=== PATIENT | male | born 1965 | race African-American/Black ===

== ENCOUNTER 2017-01-22 08:00 | Emergency (ER) | payer MEDICAID ==
[~2017-01-22] VITALS: Ht 182.9 cm; Wt 65.0 kg
[~2017-01-22 08:00] MED LIST: ALBUAER3 INH; GABA400C5 PO; PERC10TA27 PO; PRED20 PO; TOBRO RIGHT EYE
[2017-01-22 08:01] VITALS: BP 143/98; PULSE 80; RESP 20; TEMP 97.7; O2SAT 99
[2017-01-22 08:25] VITALS: BP 138/95; PULSE 58; RESP 20; TEMP 98.7; O2SAT 100
[2017-01-22] MEDS ORDERED: HYDROmorphone HCL PF 1 MG/ML VIAL IV PUSH ONE (08:45)
[2017-01-22] MEDS ORDERED: ONDANSETRON HCL 4 MG/2 ML VIAL IV PUSH ONE (08:45)
[2017-01-22] MEDS ORDERED: SODIUM CHLORIDE 0.9% FLUSH 10 ML FLUSH IVF PRN (08:45)
[2017-01-22] MEDS ORDERED: SODIUM CHLORID 0.9% 500 ML INJ 500 ML IV ONE (08:45)
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
[2017-01-22 08:53] LABS: AUTOMATED NEUTROPHIL # 5.6 TH/MM3 (1.8-7.7); BASOPHIL % 0.4 % (0.0-2.0); EOSINOPHIL # 0.4 TH/MM3 (0-0.4); EOSINOPHIL % 4.2 % (0.0-4.0); HEMATOCRIT 37.4 % (39.0-51.0); HEMO FLAGS DIFF FINAL; LYMPH % 35.1 % (9.0-44.0); LYMPHOCYTE # 3.8 TH/MM3 (1.0-4.8); MEAN CELL VOLUME 82.6 FL (80.0-100.0); MEAN CORPUSCULAR HEMOGLOBIN 28.8 PG (27.0-34.0); MEAN CORPUSCULAR HGB CONC 34.9 % (32.0-36.0); MONO % 7.9 % (0.0-8.0); NEUT % 52.4 % (16.0-70.0); PLATELET COUNT 255 TH/MM3 (150-450); RED BLOOD COUNT 4.53 MIL/MM3 (4.50-5.90); RED CELL DISTRIBUTION WIDTH 15.1 % (11.6-17.2); WHITE BLOOD COUNT 10.7 TH/MM3 (4.0-11.0)
[2017-01-22 09:01] LABS: APTT (PATIENT) 29.9 SEC (24.3-30.1); PROTHROMBIN TIME - PATIENT 10.8 SEC (9.8-11.6)
[2017-01-22 09:06] LABS: ALT (GPT) 22 U/L (12-78); ANION GAP 7 MEQ/L (5-15); AST (GOT) 12 U/L (15-37); BICARBONATE 23.3 MEQ/L (21.0-32.0); BLOOD UREA NITROGEN 9 MG/DL (7-18); CHLORIDE 110 MEQ/L (98-107); GLOMERULAR FILTRATION RATE 90 ML/MIN (>89); POTASSIUM 3.9 MEQ/L (3.5-5.1); SODIUM (NA) 140 MEQ/L (136-145)
[2017-01-22 09:10] LABS: ALKALINE PHOSPHATASE 80 U/L (45-117); TOTAL BILIRUBIN ADULT 0.2 MG/DL (0.2-1.0)
[2017-01-22 09:14] LABS: CREATINE KINASE 63 U/L (39-308)
--- NOTE | 2017-01-22 09:35 | RADRPT ---
EXAM DATE/TIME: 01/22/2017 08:33 [facility] COMPARISON: No previous studies available for comparison. INDICATIONS : Chest and back pain, short of breath, has had pneumonia in the past MEDICAL HISTORY : pneumonia SURGICAL HISTORY : None. ENCOUNTER: Initial ACUITY: 1 day PAIN SCORE: 10/10 LOCATION: Bilateral chest FINDINGS: A single view of the chest demonstrates the lungs to be symmetrically aerated without evidence of mas s, infiltrate or effusion. The cardiomediastinal contours are unremarkable. Osseous structures demo nstrate degenerative changes in the a.c. joints bilaterally. CONCLUSION: 1. No acute cardiopulmonary findings. 2. There are mild degenerative changes in the a.c. joints bilaterally. Devon Alarcon MD on January 22, 2017 at 9:32 Board Certified Radiologist. This report was verified electronically.
[2017-01-22 09:41] VITALS: BP_SYST 139; BP_SYST 145; BP_DIAS 88; BP_DIAS 94; PULSE 57; O2SAT 100
[2017-01-22] MEDS ORDERED: IOHEXOL 350 MG/ML 10 ML VIAL (for RAD DIAG) IV ONE (11:09)
--- NOTE | 2017-01-22 11:21 | RADRPT ---
EXAM DATE/TIME: 01/22/2017 10:30 [facility] COMPARISON: No previous studies available for comparison. INDICATIONS : Mid sternal chest pain radiating to back. IV CONTRAST: 75 cc Omnipaque 350 (iohexol) IV RADIATION DOSE: 3.78 CTDIvol (mGy) MEDICAL HISTORY : None SURGICAL HISTORY : None. ENCOUNTER: Initial ACUITY: 1 day PAIN SCALE: 6/10 LOCATION: chest TECHNIQUE: Volumetric scanning was performed using a multi-row detector CT scanner. The data was post processed with a variety of visualization algorithms including full volume maximum intensity projection, multi -planar sliding thin slab reformation, curved planar reformation, and surface rendering techniques. Using automated exposure control and adjustment of the mA and/or kV according to patient size, radiat ion dose was kept as low as reasonably achievable to obtain optimal diagnostic quality images. FINDINGS: Thoracic/abdominal aorta: Aorta is normal in caliber and course. No dissection, aneurysm, or surrounding fluid. No wall thicken ing. The arch vessels, celiac, SMA, VICKI, and renal arteries are patent. Heart and mediastinum: The heart is normal in size. No pericardial effusion. Pulmonary arteries are normal in caliber. No ad enopathy. Lung parenchyma: 2 tiny nodular densities are seen. One is adjacent to the major fissure within the posterior segment of the right upper lobe and the second within the superior segment of the right lower lobe. Both trent ures 3 mm. The remaining lungs are clear. Other structures: Abdominal viscera is unremarkable for this arterial phase study. No hydronephrosis or renal calculi o bserved. CONCLUSION: 1. Normal aorta. 2. No acute abnormality to explain the patient's pain. 3. 2 tiny nodular densities involving the right lung as detailed above. These likely are postinflamma tory in nature. Current guidelines suggest a repeat CT of the thorax in 12 months. Hiro Rosa Jr., MD on January 22, 2017 at 11:12 Board Certified Radiologist. This report was verified electronically.
--- NOTE | 2017-01-22 21:17 | EKG ---
Date Performed: 01/22/2017 Time Performed: 08:10:57 PTAGE: 51 years EKG: Sinus rhythm NORMAL ECG NO PREVIOUS TRACING DOCTOR: Samuel Flaherty Interpretating Date/Time 01/22/2017 21:13:00
== END 2017-01-22 11:51 | disposition home or self-care (01) ==
LOC: NEPC 08:00
DX: R07.2 Precordial pain (principal); R06.02 Shortness of breath; J45.909 Unspecified asthma, uncomplicated; R05 Cough
CPT/HCPCS: 71010; 71275; 74174; 80053; 82550; 83690; 83735; 84484; 85025; 85379; 85610; 85730; 93005; 96361; 96374; 96375; 99285; J1170; J2405; J7040; Q9967

== ENCOUNTER 2017-07-11 16:36 | Emergency (ER) | payer MEDICARE, MEDICAID ==
[~2017-07-11] VITALS: Ht 182.9 cm; Wt 65.0 kg
[2017-07-11 16:38] VITALS: BP 144/86; PULSE 59; RESP 18; TEMP 98.7; O2SAT 98
[2017-07-11] MEDS ORDERED: PERC10TA27 PO (16:54)
[2017-07-11] MEDS ORDERED: PENI500T PO (16:54)
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
[2017-07-11] MEDS ORDERED: BUPIVACAINE/EPINEPHRINE 0.5% PF 10 ML VIAL EPIDURAL ONE (17:00)
[2017-07-13] MEDS ORDERED: PERC10TA27 PO (10:50)
== END 2017-07-11 17:34 | disposition home or self-care (01) ==
LOC: NEPK 16:36
DX: S02.5XXG Fracture of tooth (traumatic), subsequent encounter for fracture with delayed healing (principal); M19.90 Unspecified osteoarthritis, unspecified site; J45.909 Unspecified asthma, uncomplicated; F41.9 Anxiety disorder, unspecified; X58.XXXD Exposure to other specified factors, subsequent encounter; Z79.899 Other long term (current) drug therapy
CPT/HCPCS: 64400